=== PATIENT | male | born 1995 | race African-American/Black ===

== ENCOUNTER 2020-10-14 09:09 | Emergency (ER) | payer BC ==
[~2020-10-14] VITALS: Ht 180.3 cm; Wt 79.4 kg
[2020-10-14 09:15] VITALS: BP 121/75
--- NOTE | 2020-10-14 09:50 | NUR ---
24 Y/O MALE C/O RIGHT SIDED NECK PAIN X YESTERDAY. PT STATES PAIN AND MUSCLE SPASMS HAPPENED AFTER WORKOUT. PT STATED IT HAS HAPPENED BEFORE. PT RATES PAIN 2/10 AT THE MOMENT BUT WHEN SPAMS OCCUR, PAULINO INCREASES TO 8/10 AND RADIATES TO R TRAP. PT REPORTS DIFFICULTY WITH MOVEMENT DUE TO PAIN. PT TOOK ADVIL LAST NIGHT WITHOUT RELIEF. DENIES NUMBNESS AND TINGLING OF ALL EXTREMETIES. PT A/O X4 WITH EVEN AND UNLABORED RESPIRATIONS. PMH - DENIES NKDA
--- NOTE | 2020-10-14 09:51 | NUR ---
DR DIAZ AT BEDSIDE EVALUATING PT
[2020-10-14] MEDS ORDERED: KETOROLAC 30 MG/ML VIAL IM ONE (09:55)
[2020-10-14] MEDS ORDERED: diazePAM 5 MG TAB PO ONE (09:55)
[2020-10-14] MEDS ORDERED: METH-1681 PO (09:58)
[2020-10-14] MEDS ORDERED: IBUP-2213 PO (09:58)
--- NOTE | 2020-10-14 10:50 | NUR ---
Patient discharged with v/s stable. Written and verbal after care instructions ABOUT MUSCLE STRAIN given and explained. Patient alert, oriented and verbalized understanding of instructions. Ambulatory with steady gait. All questions addressed prior to discharge. ID band removed. Patient advised to follow up with PMD. Rx of IBUPROFEN AND METHOCARBAMOL given. Patient educated on indication of medication including possible reaction and side effects. Opportunity to ask questions provided and answered.
== END 2020-10-14 10:50 | disposition home or self-care (01) ==
LOC: MED 09:09
DX: S16.1XXA Strain of muscle, fascia and tendon at neck level, initial encounter (principal); X58.XXXA Exposure to other specified factors, initial encounter; Y93.89 Activity, other specified; Y92.89 Other specified places as the place of occurrence of the external cause; Y99.8 Other external cause status
CPT/HCPCS: 96372; 99283; J1885